=== PATIENT | female | born 1985 | race African-American/Black ===

== ENCOUNTER 2021-10-11 12:18 | Outpatient (CLI) | payer BC, SELFPAY ==
--- NOTE | ~2021-10-11 | MMUS_ITS ---
EXAMINATION: MM diagnostic maribel LT w ede, US breast LT complete HISTORY: Follow-up left breast mass TECHNIQUE: Additional 3-D tomosynthesis images of the left breast were performed and synthetic 2-D im ages were generated. CAD analysis was submitted and interpreted. High resolution complete left breast ultrasound was performed. COMPARISON: 09/18/2021 BREAST PARENCHYMAL COMPOSITION: The breasts are heterogenously dense, which may obscure small masses. . FINDINGS: MAMMOGRAPHIC FINDINGS: There is a benign-appearing round radiolucent mass central aspect of the left breast. ULTRASOUND: Complete left breast ultrasound: At 11:00, 5 cm from the nipple, there is an oval circumscribed hypoe choic mass with parallel orientation measuring 8 x 7 x 4 mm. No internal vascularity or significant p osterior features. At 11:00, 7 cm from the nipple, there is a 3 mm cyst. At 11:00, 3 cm from the nipp le there is a 4 mm cyst. At 12:00, 2 cm from the nipple there is an oval circumscribed hypoechoic mas s with low level internal echoes, parallel orientation, no significant posterior features and interna l vascularity measuring 7 x 6 x 3 mm. It 11:30, 2 cm from the nipple, there is an oval hypoechoic mas s with echogenic hilum measuring 5 mm, likely benign intramammary lymph node. IMPRESSION: 1. Probable benign left breast masses by ultrasound. 2. Recommend 6 month follow-up diagnostic left mammogram and ultrasound BI-RADS category 3, probably benign findings. Reviewed, dictated and finalized at location A. AGE CLERK IMPRESSION: 1. Probable benign left breast masses by ultrasound. 2. Recommend 6 month follow-up diagnostic left mammogram and ultrasound BI-RADS category 3, probably benign findings.
== END 2021-10-11 12:19 | disposition home or self-care (01) ==
PROVIDERS: PCP Family Medicine; Visit Provider Family Medicine
DX: N63.20 Unspecified lump in the left breast, unspecified quadrant (principal); R92.8 Other abnormal and inconclusive findings on diagnostic imaging of breast
CPT/HCPCS: 76641; 77061; 77065; G0279